=== PATIENT | male | born 1985 | race Hispanic/Latino ===

== ENCOUNTER 2019-09-06 18:18 | Emergency (ER) | payer SELFPAY ==
[2019-09-06] MEDS ORDERED: LIDOCAINE 1% MPF 5 ML VIAL ONE (19:41)
--- NOTE | 2019-09-06 19:59 | ER ---
Nurse's Notes [facility] Name: Addison Gregorio Age: 34 yrs Sex: Male : 1985 Arrival Date: 09/06/2019 Time: 18:21 Bed 12 Private MD: Diagnosis: Cutaneous abscess of face Presentation: 09/05 18:47 Chief complaint: Patient states: abscess on chin x 1 week. Coronavirus screen: Proceed ca1 with normal triage. Patient denies a cough. Patient denies shortness of breath or difficulty breathing. Patient denies measured and/or subjective temperature greater than 100.4F prior to today's visit. Patient denies travel on a cruise ship or to a country the [facility] currently lists as an affected area. Patient denies contact with known and/or suspected case of COVID-19. Ebola Screen: Patient negative for fever greater than or equal to 101.5 degrees Fahrenheit, and additional compatible Ebola Virus Disease symptoms Patient denies exposure to infectious person. Patient denies travel to an Ebola-affected area in the 21 days before illness onset. No symptoms or risks identified at this time. Initial Sepsis Screen: Does the patient meet any 2 criteria? No. Patient's initial sepsis screen is negative. Does the patient have a suspected source of infection? No. Patient's initial sepsis screen is negative. Risk Assessment: Do you want to hurt yourself or someone else? Patient reports no desire to harm self or others. Onset of symptoms was September 06, 2019. 18:47 Method Of Arrival: Ambulatory ca1 18:47 Acuity: ROSY 4 ca1 Historical: - Allergies: 18:50 No Known Allergies; ca1 - PMHx: 18:50 None; ca1 - PSHx: 18:50 None; ca1 - Immunization history:: Adult Immunizations not up to date. - Social history:: Smoking status: Patient/guardian denies using tobacco, but has a distant history of tobacco abuse. - Family history:: not pertinent. - Hospitalizations: : No recent hospitalization is reported. Screenin:15 Abuse screen: Denies threats or abuse. Denies injuries from another. Nutritional sg screening: No deficits noted. Tuberculosis screening: No symptoms or risk factors identified. Never had TB. Fall Risk None identified. Assessment: 19:22 General: Appears in no apparent distress. uncomfortable, well groomed, well developed, sg well nourished, Behavior is calm, cooperative, appropriate for age. Pain: Complains of pain in chin. Derm: Abscess located on chin is nickel sized, has no drainage, is hot to touch, is red, is raised. Musculoskeletal: Circulation, motion, and sensation intact. Range of motion: intact in all extremities. Vital Signs: 18:47 BP 158 / 94; Pulse 82; Resp 16 S; Temp 99.2(TE); Pulse Ox 100% on R/A; Weight 74.39 kg ca1 (R); Height 5 ft. 11 in. (180.34 cm) (R); Pain 9/10; 18:47 Body Mass Index 22.87 (74.39 kg, 180.34 cm) ca1 ED Course: 18:21 Patient arrived in ED. ag5 18:49 Triage completed. ca1 18:50 Arm band placed on right wrist. ca1 19:15 Patient has correct armband on for positive identification. Pulse ox on. NIBP on. sg 19:19 Brad Duong RN is Primary Nurse. sg 19:23 Torsten Arambula MD is Attending Physician. rn 20:00 Dressings: Band aid x 1 chin. sg 20:00 Assist provider with I \T\ D: of an abscess on chin Set up I\T\D tray. Performed by Torsten Arambula MD Wound packed. iodoform gauze, Patient tolerated well. Patient did not have IV access during this emergency room visit. Administered Medications: 19:37 Drug: Lidocaine (1 %) 1 vials {Note: medication administered by .} Volume: 5 sg ml; Route: Infiltration; 20:01 Drug: [place] 10 mg-325 mg 1 tabs Route: PO; sg 20:01 Drug: Clindamycin 300 mg Route: PO; sg Outcome: 19:57 Discharge ordered by . rn 20:00 Discharged to home ambulatory, with family. sg 20:00 Condition: good 20:00 Discharge instructions given to patient, spirits model, Instructed on discharge instructions, follow up and referral plans. medication usage, wound care, Demonstrated understanding of instructions, follow-up care, medications, wound care, Prescriptions given X 2. 20:08 Patient left the ED. sg Addendum: 09/09/2019 12:12 Addendum: Culture Results: Positive wound culture. Bacteria is resistant to, has s s intermediate sensitivity, or is not tested against prescribed antibiotics. Report given to SHANTA for further evaluation and then to cryptographic machine operator for follow up with patient. Phone call Attempt #1 No answer, unable to leave VM as voicemail box is full. Signatures: Brad Duong RN RN Torsten Bright MD MD rn Smirch, Shelby, RN RN ss Acob, Cheryl, RN RN [facility] Giovanni Barrios [facility]
--- NOTE | 2019-09-06 19:59 | EDPHYS ---
Physician Documentation [facility] Name: Addison Gregorio Age: 34 yrs Sex: Male : 1985 Arrival Date: 09/06/2019 Time: 18:21 Bed 12 Private MD: ED Physician Torsten Arambula HPI: 09/05 19:29 This 34 yrs old Male presents to ER via Ambulatory with complaints of abscess. rn 19:29 The patient presents with an abscess of the face. Onset: The symptoms/episode rn began/occurred 1 week(s) ago. Possible cause(s): unknown. Associated signs and symptoms: The patient has no apparent associated signs or symptoms. Modifying factors: the symptoms are alleviated by nothing, the symptoms are aggravated by squeezing the lesion and expressing the contents, touching. Severity of symptoms: At their worst the symptoms were moderate, in the emergency department the symptoms are unchanged. The patient has not experienced similar symptoms in the past. The patient has been recently seen by a physician:. REports seen outside ER last week, given bactrim, getting worse, no Incision and drainage performed. No fever. Siginificant other popped it today but too painful to get all out.. Historical: - Allergies: 18:50 No Known Allergies; ca1 - PMHx: 18:50 None; ca1 - PSHx: 18:50 None; ca1 - Immunization history:: Adult Immunizations not up to date. - Social history:: Smoking status: Patient/guardian denies using tobacco, but has a distant history of tobacco abuse. - Family history:: not pertinent. - Hospitalizations: : No recent hospitalization is reported. ROS: 19:29 Constitutional: Negative for fever, chills, and weight loss, Skin: + facial abscess rn Exam: 19:29 Constitutional: This is a well developed, well nourished patient who is awake, alert, rn and in no acute distress. Head/Face: Normocephalic, atraumatic. Skin: Warm, dry, + right chin with 3cm induration and central fluctuance. + open hole with purulence expressed, + tender. Rest of face without cellulitis. Vital Signs: 18:47 BP 158 / 94; Pulse 82; Resp 16 S; Temp 99.2(TE); Pulse Ox 100% on R/A; Weight 74.39 kg ca1 (R); Height 5 ft. 11 in. (180.34 cm) (R); Pain 9/10; 18:47 Body Mass Index 22.87 (74.39 kg, 180.34 cm) ca1 Procedures: 19:54 I \T\ D: Incision and drainage was performed for an abscess of the right chin Prepped rn with Betadine, Anesthetized with 3 ml's 1% Lidocaine. Incised with #11 blade. Drained moderate amount purulent fluid. serosanguinous fluid. Packed with iodoform gauze, Dressing: sterile 4x4 gauze, the patient tolerated the procedure well. MDM: 19:23 Patient medically screened. rn 19:54 Differential diagnosis: abscess. Data reviewed: vital signs, nurses notes, and as a rn result, I will discharge patient. Counseling: I had a detailed discussion with the patient and/or guardian regarding: the historical points, exam findings, and any diagnostic results supporting the discharge/admit diagnosis, the need for outpatient follow up, to return to the emergency department if symptoms worsen or persist or if there are any questions or concerns that arise at home. Response to treatment: the patient's symptoms have mildly improved after treatment, and as a result, I will discharge patient. Special discussion: I discussed with the patient/guardian in detail that at this point there is no indication for admission to the hospital. It is understood, however, that if the symptoms persist or worsen the patient needs to return immediately for re-evaluation. ED course: Incision made and extended through stab wound made by in center of abscess, loculations broken up, will dc home with clindamycin and pain meds.. 19:54 ED course: [place] checked, no records found.. rn 09/05 19:29 Order name: Wound Culture rn 09/05 19:29 Order name: Incision \T\ Drainage Setup; Complete Time: 19:37 rn Administered Medications: 19:37 Drug: Lidocaine (1 %) 1 vials {Note: medication administered by .} Volume: 5 sg ml; Route: Infiltration; 20:01 Drug: [place] 10 mg-325 mg 1 tabs Route: PO; sg 20:01 Drug: Clindamycin 300 mg Route: PO; sg Disposition: 09/06/19 19:57 Discharged to Home. Impression: Cutaneous abscess of face. - Condition is Stable. - Discharge Instructions: Skin Abscess, Incision and Drainage, Care After. - Prescriptions for Clindamycin HCl 300 mg Oral Capsule - take 1 capsule by ORAL route every 6 hours for 10 days; 40 capsule. Tylenol- Codeine #3 300-30 mg Oral Tablet - take 1 tablet by ORAL route every 6 hours As needed; 15 tablet. - Medication Reconciliation Form, Thank You Letter, Antibiotic Education, Prescription Opioid Use form. - Follow up: Private Physician; When: As needed; Reason: Recheck today's complaints, Re-evaluation by your physician. - Problem is new. - Symptoms have improved. Signatures: Dispatcher [employer] EDMS Brad Duong RN RN sg Torsten Arambula MD MD rn Acob, ALICE Dickinson RN ca1 Corrections: (The following items were deleted from the chart) 19:54 19:29 Constitutional: This is a well developed, well nourished patient who is awake, rn alert, and in no acute distress. Head/Face: Normocephalic, atraumatic. Skin: Warm, dry, + right chin with 3cm induration and central fluctuance. + open hole with purulence expressed, + tender. Rest of face without cellulitis. rn 20:08 19:57 09/06/2019 19:57 Discharged to Home. Impression: Cutaneous abscess of face. sg Condition is Stable. Forms are Medication Reconciliation Form, Thank You Letter, Antibiotic Education, Prescription Opioid Use. Follow up: Private Physician; When: As needed; Reason: Recheck today's complaints, Re-evaluation by your physician. Problem is new. Symptoms have improved. rn
[2019-09-06] MEDS ORDERED: HYDROCODONE/APAP 10/325 TAB ONE (20:04)
[2019-09-06 20:41] VITALS: BP 158/94; TEMP 99.2; O2SAT 100
== END 2019-09-06 20:08 | disposition home or self-care (01) ==
LOC: ER 18:18
PROC: 0J910ZZ Drainage of Face Subcutaneous Tissue and Fascia, Open Approach (ICD-10-PCS; principal; 2019-09-06)
DX: L02.01 Cutaneous abscess of face (principal)
CPT/HCPCS: 87070; 87077; 87186; 87205; 99284

== ENCOUNTER 2019-09-06 21:58 | Emergency (ER) | payer SELFPAY ==
[2019-09-06] MEDS ORDERED: METHYLPREDNISOLONE 125 MG INJ ONE (22:15)
[2019-09-06] MEDS ORDERED: DIPHENHYDRAMINE 25 MG TAB/CAP ONE (22:16)
--- NOTE | 2019-09-06 22:40 | ER ---
Nurse's Notes [facility] Name: Addison Gregorio Age: 34 yrs Sex: Male : 1985 Arrival Date: 09/06/2019 Time: 22:01 Bed 19 Private MD: Diagnosis: Urticaria, unspecified Presentation: 09/05 22:03 Chief complaint: Patient states: Itching and rash that began when I got home from the ER earlier tonight, pt was given abx and hydrocodone for an I/D on the chin performed in the ED this evening. pt denies any other medications at this time. Coronavirus screen: Proceed with normal triage. Ebola Screen: Patient negative for fever greater than or equal to 101.5 degrees Fahrenheit, and additional compatible Ebola Virus Disease symptoms Patient denies exposure to infectious person. Patient denies travel to an Ebola-affected area in the 21 days before illness onset. No symptoms or risks identified at this time. Onset: The symptoms/episode began/occurred gradually, 1 hour(s) ago. Anaphylaxis evaluation, no signs or symptoms of anaphylaxis were noted. Initial Sepsis Screen: Does the patient meet any 2 criteria? No. Patient's initial sepsis screen is negative. Does the patient have a suspected source of infection? Yes: Skin breakdown/wound. Risk Assessment: Do you want to hurt yourself or someone else? Patient reports no desire to harm self or others. Onset of symptoms was September 06, 2019. Care prior to arrival: None. Transition of care: patient was not received from another setting of care. 22:03 Method Of Arrival: Ambulatory 22:03 Acuity: ROSY 4 Triage Assessment: 22:07 General: Appears comfortable, Behavior is calm, cooperative. Pain: Denies pain. EENT: rv No signs and/or symptoms were reported regarding the EENT system. Neuro: Level of Consciousness is awake, alert, obeys commands, Oriented to person, place, time, situation. Cardiovascular: Patient's skin is warm and dry. Respiratory: Airway is patent Respiratory effort is even, unlabored, Breath sounds are clear bilaterally. Historical: - Allergies: 22:06 NKDA; sg 22:05 Clindamycin; rv - Home Meds: 22:07 None [Active]; rv - PMHx: 22:06 None; sg 22:07 None; rv - PSHx: 22:06 None; sg 22:07 None; rv - Immunization history:: Adult Immunizations up to date, Adult Immunizations up to date. - Social history:: Smoking status: Patient denies any tobacco usage or history of. Smoking status: Patient/guardian denies using tobacco, Stopped _ months ago 1. - Family history:: not pertinent. - Hospitalizations: : No recent hospitalization is reported. Screenin:14 Abuse screen: Denies threats or abuse. Denies injuries from another. Nutritional rv screening: No deficits noted. Tuberculosis screening: No symptoms or risk factors identified. Fall Risk None identified. Assessment: 22:13 General: Appears in no apparent distress. Pain: Denies pain. Neuro: Level of rv Consciousness is awake, alert, obeys commands, Oriented to person, place, time, situation. Cardiovascular: Patient's skin is warm and dry. Respiratory: Airway is patent Respiratory effort is even, unlabored, Breath sounds are clear bilaterally. Derm: Rash noted that is itchy, red. 22:32 Reassessment: Patient states feeling better. Patient states symptoms have improved. rv Vital Signs: 22:09 BP 154 / 99; Pulse 74; Resp 16; Temp 98.2(TE); Pulse Ox 99% ; lt1 ED Course: 22:01 Patient arrived in ED. bp1 22:02 Torsten Arambula MD is Attending Physician. rn 22:05 Richard Gutierres RN is Primary Nurse. rv 22:05 Triage completed. sg 22:05 Arm band placed on. sg 22:14 Patient has correct armband on for positive identification. Pulse ox on. NIBP on. rv 22:32 No provider procedures requiring assistance completed. Patient did not have IV access rv during this emergency room visit. Administered Medications: 22:13 Drug: SOLU-Medrol 125 mg Route: IM; Site: right deltoid; rv 22:33 Follow up: Response: No adverse reaction; Marked relief of symptoms rv 22:13 Drug: Benadryl 50 mg Route: PO; rv 22:33 Follow up: Response: No adverse reaction; Marked relief of symptoms rv Outcome: 22:32 Discharged to home ambulatory. rv 22:32 Condition: improved 22:32 Discharge instructions given to patient, Instructed on discharge instructions, follow up and referral plans. medication usage, Demonstrated understanding of instructions, follow-up care, medications, Prescriptions given X 2. 22:38 Discharge ordered by . gaurang 23:00 Patient left the ED. rr5 Signatures: Brad Duong RN RN Torsten Bright MD MD rn Vicente, Ronaldo, RN RN rv Roque, Raymond, RN RN rr5 Laisha, Alma Delia lt1 Shaji, Karina bp1
--- NOTE | 2019-09-06 22:40 | EDPHYS ---
Physician Documentation [facility] Name: Addison Gregorio Age: 34 yrs Sex: Male : 1985 Arrival Date: 09/06/2019 Time: 22:01 Bed 19 Private MD: ED Physician Torsten Arambula HPI: 09/05 22:06 This 34 yrs old Male presents to ER via Ambulatory with complaints of Allergic rn Reaction, Itching. 22:06 The patient presents with itching, rash. Onset: The symptoms/episode began/occurred rn just prior to arrival. Possible causes: antibiotics, clindamycin. At home the patient or guardian has treated the symptoms with nothing. Severity of symptoms: At their worst the symptoms were mild in the emergency department the symptoms are unchanged. The patient has experienced a previous episode. Just seen by me earlier today, at the time reported unknown abx, given clindamycin for abscess, took first here, now returns with itching and rash to legs. No sob. No swelling. . Historical: - Allergies: 22:06 NKDA; sg 22:05 Clindamycin; rv - Home Meds: 22:07 None [Active]; rv - PMHx: 22:06 None; sg 22:07 None; rv - PSHx: 22:06 None; sg 22:07 None; rv - Immunization history:: Adult Immunizations up to date, Adult Immunizations up to date. - Social history:: Smoking status: Patient denies any tobacco usage or history of. Smoking status: Patient/guardian denies using tobacco, Stopped _ months ago 1. - Family history:: not pertinent. - Hospitalizations: : No recent hospitalization is reported. ROS: 22:06 Constitutional: Negative for fever, chills, and weight loss, Eyes: Negative for injury, rn pain, redness, and discharge, ENT: Negative for injury, pain, and discharge, Cardiovascular: Negative for chest pain, palpitations, and edema, Respiratory: Negative for shortness of breath, cough, wheezing, and pleuritic chest pain, Abdomen/GI: Negative for abdominal pain, nausea, vomiting, diarrhea, and constipation, MS/Extremity: Negative for injury and deformity, Skin: + rash to legs and itching Neuro: Negative for headache, weakness, numbness, tingling, and seizure. Exam: 22:06 Constitutional: This is a well developed, well nourished patient who is awake, alert, rn and in no acute distress. Ambulatory to room without difficulty or help. Head/Face: Normocephalic, atraumatic. Eyes: Pupils equal round and reactive to light, extra-ocular motions intact. Lids and lashes normal. Conjunctiva and sclera are non-icteric and not injected. Cornea within normal limits. Periorbital areas with no swelling, redness, or edema. ENT: no stridor Respiratory: Speaking full sentences, no labored breathing. Skin: Warm, dry, + mild urticaria to bilateral inner thighs. MS/ Extremity: Pulses equal, no cyanosis. Neurovascular intact. Full, normal range of motion. Equal circumference. Neuro: Awake and alert, GCS 15, oriented to person, place, time, and situation. Cranial nerves II-XII grossly intact. Motor strength 5/5 in all extremities. Sensory grossly intact. Cerebellar exam normal. Normal gait. Vital Signs: 22:09 BP 154 / 99; Pulse 74; Resp 16; Temp 98.2(TE); Pulse Ox 99% ; lt1 MDM: 22:02 Patient medically screened. rn 22:20 Differential diagnosis: urticaria, allergic reaction. Data reviewed: vital signs, rn nurses notes. Counseling: I had a detailed discussion with the patient and/or guardian regarding: the historical points, exam findings, and any diagnostic results supporting the discharge/admit diagnosis, the need for outpatient follow up, to return to the emergency department if symptoms worsen or persist or if there are any questions or concerns that arise at home. Response to treatment: the patient's symptoms have mildly improved after treatment, and as a result, I will discharge patient. 22:21 ED course: Reports has taken codeine medication before without reaction, so likely rn clindamycin, will change to keflex and continue to take bactrim. . Administered Medications: 22:13 Drug: SOLU-Medrol 125 mg Route: IM; Site: right deltoid; rv 22:33 Follow up: Response: No adverse reaction; Marked relief of symptoms rv 22:13 Drug: Benadryl 50 mg Route: PO; rv 22:33 Follow up: Response: No adverse reaction; Marked relief of symptoms rv Disposition: 09/06/19 22:38 Discharged to Home. Impression: Urticaria, unspecified. - Condition is Stable. - Discharge Instructions: Hives. - Prescriptions for Keflex 500 mg Oral Capsule - take 1 capsule by ORAL route every 12 hours for 10 days; 20 capsule. Prednisone 20 mg Oral Tablet - take 3 tablet by ORAL route once daily for 5 days; 15 tablet. - Medication Reconciliation Form, Thank You Letter, Antibiotic Education, Prescription Opioid Use form. - Follow up: Private Physician; When: As needed; Reason: Recheck today's complaints, Re-evaluation by your physician. - Problem is new. - Symptoms have improved. Signatures: Brad Duong RN RN sg Torsten Arambula MD MD rn Vicente, Ronaldo RN Leroy Boyd RN RN rr5 Corrections: (The following items were deleted from the chart) 23:00 22:38 09/06/2019 22:38 Discharged to Home. Impression: Urticaria, unspecified. rr5 Condition is Stable. Discharge Instructions: Hives. Prescriptions for Keflex 500 mg Oral Capsule - take 1 capsule by ORAL route every 12 hours for 10 days; 20 capsule, Prednisone 20 mg Oral Tablet - take 3 tablet by ORAL route once daily for 5 days; 15 tablet. and Forms are Medication Reconciliation Form, Thank You Letter, Antibiotic Education, Prescription Opioid Use. Follow up: Private Physician; When: As needed; Reason: Recheck today's complaints, Re-evaluation by your physician. Problem is new. Symptoms have improved. rn
[2019-09-06 23:10] VITALS: BP 154/99; TEMP 98.2; O2SAT 99
== END 2019-09-06 23:00 | disposition home or self-care (01) ==
LOC: ER 21:58
DX: L50.9 Urticaria, unspecified (principal); Z88.1 Allergy status to other antibiotic agents
CPT/HCPCS: 96372; 99283; J2930